=== PATIENT | male | born 1950 | race Caucasian/White ===

== ENCOUNTER 2021-10-18 09:03 | Day surgery (SDC) | payer MEDICARE, BC ==
[~2021-10-18] VITALS: Ht 182.9 cm; Wt 94.0 kg
[~2021-10-18 09:03] MED LIST: ALLEGRA ALLERG180 MG PO; ALLO100 PO; Antihistamine25 MG PO; BETAMETHASONE DIPROPIONATE; CALCIPOTRIENE; CELE200 PO; FISH OIL 1,2001 EAC7 PO; L-Lysine500 M1 PO; MAGNESIUM; MAGNESIUM OXID500 MG PO; METAMUCIL POWD798 GM PO; METR59TL; MULTIPLE VITAM1 EACH PO; Multivitamin1 EAC1 PO; TACLONEX OINTME60 GM; [UNRECOGNIZED DRUG - MIXTURE] PO
== END 2021-10-18 11:10 | disposition home or self-care (01) ==
LOC: ORSCSDS 09:03
PROVIDERS: Internal Medicine Gastroenterology
PROC: 0DBL8ZX Excision of Transverse Colon, Via Natural or Artificial Opening Endoscopic, Diagnostic (ICD-10-PCS; principal; 2021-10-18 10:15)
DX: Z12.11 Encounter for screening for malignant neoplasm of colon (principal); Z86.010 Personal history of colon polyps; Z80.0 Family history of malignant neoplasm of digestive organs; D12.3 Benign neoplasm of transverse colon; K57.30 Diverticulosis of large intestine without perforation or abscess without bleeding; K52.9 Noninfective gastroenteritis and colitis, unspecified; Z87.891 Personal history of nicotine dependence; Z79.899 Other long term (current) drug therapy
CPT/HCPCS: 88305; J2704; J7120